=== PATIENT | female | born 1945 | race Caucasian/White ===

== ENCOUNTER → 2017-02-01 | Outpatient (CLI) | payer MEDICARE, MEDICAID | PROVIDERS: ATTEND Internal Medicine | DX: N61.1 Abscess of the breast and nipple (principal) | CPT/HCPCS: 87070; 87077; 87186; 87205 ==

== ENCOUNTER → 2017-04-16 | Outpatient (CLI) | payer MEDICARE, MEDICAID ==
--- NOTE | 2017-04-16 11:56 | Diagnostic Imaging Report ---
Bilateral diagnostic mammogram. CAD is utilized. INDICATION: Breast cancer diagnosed with a punch biopsy from a skin lesion in the inferior aspect of the left breast. There is a biopsy clip at the site also seen. There is an irregular nodule measuring 1 cm seen at this site. Adjacent ulceration is suggested, perhaps related to soft tissue defect from the biopsy. No other mass is identified in the breasts or visualized portions of the axilla on either side. Benign-appearing calcifications are noted. The background breast is almost entirely composed of fat. IMPRESSION: Biopsy-proven breast cancer with irregular mass measuring 1 cm in the medial aspect of the left breast with an adjacent defect, presumably related to the surgical biopsy. Ultrasound evaluation is pending. ACR BI-RADS Category 0: Incomplete. (Needs additional imaging evaluation). Result letter will be mailed to the patient. Note: At least 10% of breast cancer is not imaged by mammography. Dictated by: Dictated on workstation # [id number]
--- NOTE | 2017-04-16 12:14 | Diagnostic Imaging Report ---
Left breast ultrasound. INDICATION: Skin lesion. FINDINGS: There are superficial nodules extending to the skin measuring 1.9 x 0.7 x 2.5 cm at 8 o'clock zone about 9 cm from the nipple at the recent biopsy site. This is associated with internal vascularity. There are also other skin-based nodules that are adjacent to this lesion but appear separate measuring each 0.9 x 0.4 cm in size. IMPRESSION: There are three solid-appearing nodules, the largest involves the skin subcutaneous tissues and could represent breast cancer invading the skin. The other two adjacent lesions appear to be within the skin. Correlate with pathology results of prior biopsy and consider excisional evaluation of the other nodules. ACR BI-RADS Category 6: Known biopsy proven malignancy. Result letter will be mailed to the patient. Note: At least 10% of breast cancer is not imaged by mammography. Dictated by: Dictated on workstation # [id number]
== END ==
LOC: RAD 08:38 → EDBD 09:30
PROVIDERS: ATTEND Surgery
DX: N63 Unspecified lump in breast (principal); C50.912 Malignant neoplasm of unspecified site of left female breast
CPT/HCPCS: 76641; 77066

== ENCOUNTER → 2017-04-23 | Outpatient (CLI) | payer MEDICARE, MEDICAID ==
--- NOTE | 2017-04-23 15:56 | Diagnostic Imaging Report ---
EXAMINATION: PET-CT TECHNIQUE: Serum glucose level at the time of the study is: 107 mg/dL. 14.9 mCi of FDG was administered intravenously followed by obtaining PET images with corresponding noncontrast CT scan images. The CT scan was performed for anatomic correlation and attenuation correction and was not performed according to the diagnostic protocol of the areas covered. The scan was performed from the head to mid thighs. INDICATION: Initial staging for breast cancer. FINDINGS: There is symmetric FDG uptake in the brain. No hypermetabolic mass is seen in the neck. No hypermetabolic enlarged lymph nodes are seen in the axilla. There is a mild focus of increased FDG uptake noted however in the inferior aspect of the left breast medial to the metallic marker, probably representing a biopsy clip. This could be related to postbiopsy change or one of the lesions described on recent ultrasound and mammogram exam. The actual lesion is occult by the localizer associated CT scan. In the chest, no hypermetabolic lymph node is seen. No hypermetabolic lung metastasis. In the abdomen and pelvis, there is urinary tract activity related to excretion of the tracer with no suspicious hypermetabolic mass. No hypermetabolic osseous metastasis is identified. The CT evaluation demonstrates patchy interstitial infiltrates in the lungs without significant FDG uptake suggestive of inflammatory or atypical infectious pneumonitis. IMPRESSION: 1. There is a focus of hypermetabolism in the inferior aspect of the left breast adjacent to the biopsy clip. This could be related to the nodules described on recent left breast ultrasound. These are not well seen on this exam. 2. No hypermetabolic lymph nodes or masses to suggest metastasis. 3. Indeterminate predominantly interstitial pulmonary infiltrates seen may relate to inflammatory or atypical infectious pneumonitis. Correlate clinically and with dedicated diagnostic CT scan of the chest if needed. Dictated by: Dictated on workstation # [id number]
== END ==
LOC: RAD 08:05
PROVIDERS: ATTEND Surgery
DX: C50.912 Malignant neoplasm of unspecified site of left female breast (principal); R93.8 Abnormal findings on diagnostic imaging of other specified body structures

== ENCOUNTER → 2017-04-26 | Outpatient (CLI) | payer MEDICARE, MEDICAID ==
--- NOTE | 2017-04-30 07:47 | ECHOCARDIOGRAPHY REPORT ---
DATE OF SERVICE: 04/27/2017 ECHOCARDIOGRAM ATTENDING PHYSICIAN: Dr. Nuzhat Valencia PRIMARY PHYSICIAN: . DIAGNOSES: Chest pain, diabetes, congestive heart failure, hypertension, shortness of breath. FINDINGS: 1. This is a technically difficult study. The patient could not lie in the left lateral position. Therefore, many views were limited. 2. Sinus rhythm. 3. Left atrial dimensions are not enlarged. 4. Left ventricular systolic function is preserved. LVEF is 60%. Mild concentric LVH is noted. Diastolic interventricular septal diameter is 1.4 cm. 5. There is no wall motion abnormality. 6. Right heart dimensions are normal. 7. There is no evidence of pericardial effusion. 8. IVC is not well visualized. 9. Complete diastolic evaluation was not performed. VALVULAR STRUCTURE OF THE HEART: 1. There is mild tricuspid regurgitation. RVSP is 18 mmHg. 2. There is mild mitral regurgitation with mild mitral valve thickening. 3. The aortic valve appeared to be thickened. There is suspicion of an echogenic density noted in one of the aortic valve leaflets. If endocarditis is suspected, a transesophageal echocardiogram will be recommended. 4. Pulmonic valve was not well visualized. CONCLUSION: 1. Technically, difficult study with numerous views, which were limited. 2. LV and RV size and function is normal. 3. LVEF is 60%. 4. There is no significant valvular heart disease. 5. There is normal PA pressure. 6. There is a small echogenic density noted in one of the aortic leaflets. If endocarditis is suspected, transesophageal echocardiogram is recommended. Job ID: [id number] DocumentID: [id number] Dictated Date: 04/28/2017 13:45:50 Delivery Consultant Date: 04/28/2017 16:49:41 Dictated By: MAGDALENO VALENCIA MD
== END ==
LOC: EDBD → CARD 12:07
PROVIDERS: ATTEND Internal Medicine Interventional Cardiology
DX: R07.9 Chest pain, unspecified (principal); E11.9 Type 2 diabetes mellitus without complications; I11.0 Hypertensive heart disease with heart failure; I50.9 Heart failure, unspecified; R06.00 Dyspnea, unspecified; I08.1 Rheumatic disorders of both mitral and tricuspid valves
CPT/HCPCS: 93306

== ENCOUNTER → 2017-04-26 | Outpatient (CLI) | payer MEDICARE, MEDICAID | LOC: RAD 12:00 | PROVIDERS: ATTEND Internal Medicine Critical Care Medicine | DX: J44.9 Chronic obstructive pulmonary disease, unspecified (principal); R06.00 Dyspnea, unspecified; F41.9 Anxiety disorder, unspecified ==

== ENCOUNTER → 2017-05-02 | Outpatient (CLI) | payer MEDICARE, MEDICAID ==
[~2017-05-02] MED LIST: CATHETER FLUSH 10 ML SYR IV PRN; REGADENOSON 0.4 MG/5 ML SYR (LEXISCAN) IV ONE
== END ==
LOC: EDBD → CARD 08:11
PROVIDERS: ATTEND Internal Medicine Interventional Cardiology
DX: E11.9 Type 2 diabetes mellitus without complications (principal); R07.9 Chest pain, unspecified; I11.0 Hypertensive heart disease with heart failure; I50.9 Heart failure, unspecified; R06.00 Dyspnea, unspecified

== ENCOUNTER 2017-05-15 08:34 | Outpatient (RCR) | payer MEDICARE, MEDICAID ==
[2017-05-15 10:59] LABS: BASOPHILS % (AUTO) 0 % (0-10); EOSINOPHILS # (AUTO) 0.4 10^3/uL (0.0-0.3); EOSINOPHILS % (AUTO) 4 % (0-10); LYMPHOCYTES # (AUTO) 1.9 X 10^3 (1.0-4.0); LYMPHOCYTES % (AUTO) 20 % (12-44); MEAN CORPUSCULAR HEMOGLOBIN 31 PG (25-34); MEAN CORPUSCULAR HGB CONC 32 G/DL (32-36); MEAN CORPUSCULAR VOLUME 95 FL (80-99); MEAN PLATELET VOLUME 9.8 FL (7.4-10.4); MONOCYTES # (AUTO) 1.3 X 10^3 (0.0-1.0); MONOCYTES % (AUTO) 13 % (0-12); NEUTROPHILS # (AUTO) 6.2 X 10^3 (1.8-7.8); NEUTROPHILS % (AUTO) 63 % (42-75); PLATELET COUNT 240 10^3/uL (130-400); RED BLOOD COUNT 4.68 10^6/uL (4.35-5.85); WHITE BLOOD COUNT 9.8 10^3/uL (4.3-11.0)
[2017-05-15 11:17] LABS: ALANINE AMINOTRANSFERASE 55 U/L (0-55); ALBUMIN 3.7 GM/DL (3.2-4.5); ANION GAP 10 MMOL/L (5-14); ASPARTATE AMINO TRANSFERASE 62 U/L (5-34); BILIRUBIN,TOTAL 0.7 MG/DL (0.1-1.0); BLOOD UREA NITROGEN 13 MG/DL (7-18); BUN/CREATININE RATIO 19 (0-20); CALCIUM 9.4 MG/DL (8.5-10.1); CARBON DIOXIDE 30 MMOL/L (21-32); CHLORIDE 98 MMOL/L (98-107); GFR ESTIMATED > 60; GLUCOSE 102 MG/DL (70-105); SODIUM 138 MMOL/L (135-145); TOTAL PROTEIN 7.5 GM/DL (6.4-8.2)
[2017-05-15 11:21] LABS: HEMOLYSIS 0 (0-29); LIPEMIA 0 (0-49)
[2017-05-20] MEDS ORDERED: RSP50S IM (15:36)
[2017-05-20] MEDS ORDERED: FURO40TA4 PO (15:36)
[2017-05-20] MEDS ORDERED: LURA60TA2 PO (15:36)
[2017-05-20] MEDS ORDERED: FLUP10TA PO (15:36)
[2017-05-20] MEDS ORDERED: VALP250S3 PO ×2 (15:36)
[2017-05-20] MEDS ORDERED: MELA1TAB10 PO (15:36)
[2017-05-20] MEDS ORDERED: LACT1CAP62 PO (15:36)
[2017-05-20] MEDS ORDERED: NYST15PO2 TP (15:36)
[2017-05-20] MEDS ORDERED: ACET325T49 PO (15:36)
[2017-05-20] MEDS ORDERED: IPRA3AMP IH (15:36)
[2017-05-20] MEDS ORDERED: POLY119P5 PO (15:36)
[2017-05-20] MEDS ORDERED: OLAN5TAB25 PO (15:36)
[2017-05-20] MEDS ORDERED: MULT1TAB69 PO (15:36)
[2017-05-20] MEDS ORDERED: CLOT15CR6 TP (15:36)
[2017-05-20] MEDS ORDERED: PANT40TA3 PO (15:36)
[2017-07-03] MEDS ORDERED: LURA40TA3 PO (13:28)
[2017-07-03] MEDS ORDERED: AMLO5TAB2 PO (13:28)
== END 2017-08-13 | disposition home or self-care (01) ==
LOC: ONC 08:34
PROVIDERS: ATTEND Internal Medicine Hematology & Oncology
DX: C50.912 Malignant neoplasm of unspecified site of left female breast (principal)
CPT/HCPCS: 36415; 80053; 85025; 86300; 99214